=== PATIENT | female | born 1965 | race Caucasian/White ===

== ENCOUNTER 2016-10-01 07:39 | Emergency (ER) | payer BC ==
[~2016-10-01] VITALS: Ht 162.6 cm; Wt 73.5 kg
[2016-10-01 07:42] VITALS: Ht 162.6 cm; Wt 73.5 kg
--- NOTE | 2016-10-01 08:34 | ERD ---
ER Documentation Chief Complaint Date/Time DATE: 10/01/16 TIME: 08:32 Chief Complaint mechanical fall injured r foot HPI This is a 50-year-old female who presents to the emergency department today complaining of right foot and ankle pain after a fall last night. Patient states this happened approximately 10 PM and she put ice on her foot and she thought it would feel better but it woke her up in pain this morning. States she also fell in her left knee and has also put ice on that. Denies any previous trauma. States she is able to walk however she has pain with ambulation. Denies any fevers or chills ROS All systems reviewed and are negative except as per history of present illness. Medications Home Meds Active Scripts Neomycin Moran/Bacitrac Zn/Poly (Triple Antibiotic Ointment) 1 Each Oint.pack, 1 EACH TP BID for 7 Days Prov:RENA BULL PA-C 10/01/16 Allergies Allergies: Coded Allergies: No Known Allergy (Unverified , 10/01/16) PMhx/Soc History of Surgery: No Anesthesia Reaction: No Hx Neurological Disorder: No Hx Respiratory Disorders: No Hx Cardiac Disorders: No Hx Psychiatric Problems: No Hx Miscellaneous Medical Probl: No Hx Alcohol Use: No Hx Substance Use: No Hx Tobacco Use: No Smoking Status: Never smoker Physical Exam Vitals Vital Signs Date Time Temp Pulse Resp B/P Pulse Ox O2 Delivery O2 Flow Rate FiO2 10/01/16 07:42 98.0 69 18 156/85 99 Physical Exam Const: Talkative, no acute distress Head: Atraumatic Eyes: Normal Conjunctiva ENT: Normal External Ears, Nose and Mouth. Neck: Full range of motion..~ No meningismus. Resp: Clear to auscultation bilaterally Cardio: Regular rate and rhythm, no murmurs Abd: Soft, non tender, non distended. Normal bowel sounds Skin: Abrasion left knee MSK: Right foot and ankle with no obvious deformity. Mild effusion over lateral aspect of ankle. Diffusely tender to palpation foot. Full active range of motion ankle. Nontender proximal fibula. Pulses 2+. Distal neurovascularly intact. Left knee with active range of motion. Evidence of abrasion and tenderness palpation over tibial tubercle. Neur: Awake and alert Psych: Normal Mood and Affect Results 24 hrs DIAGNOSTIC IMAGING REPORT Patient: CALLIESARAHLALA : 1965 Age: 50 Sex: F MR #: [id number] DOS: 10/01/16 0000 Ordering MD: RENA BULL PA-C Location: [facility] Room/Bed: PROCEDURE: XR right ankle. CLINICAL INDICATION: Injury TECHNIQUE: Three views are available for review. COMPARISON: None available FINDINGS: The osseous structures are normal in mineralization, architecture and alignment. No fracture or osseous lesion is identified. The joints are unremarkable. The soft tissues are unremarkable. IMPRESSION: Unremarkable examination. RPTAT: HGDB .Nick Phipps MD, Date Time Electronically viewed and signed by .Nick Phipps MD, MD on 10/01/2016 09:02 .B/ CC: RENA BULL PA-C OSTIC IMAGING REPORT Patient: LALA ARENAS : 1965 Age: 50 Sex: F MR #: [id number] DOS: 10/01/16 0000 Ordering MD: RENA BULL PA-C Location: [facility] Room/Bed: PROCEDURE: XR right foot. CLINICAL INDICATION: Injury TECHNIQUE: Three views are available for review. COMPARISON: None available FINDINGS: The osseous structures are normal in mineralization, architecture and alignment. No fracture or osseous lesion is identified. The joints are unremarkable. The soft tissues are unremarkable. IMPRESSION: Unremarkable examination. RPTAT: HGDB .Nick Phipps MD, Date Time Electronically viewed and signed by .Nick Phipps MD, MD on 10/01/2016 09:02 .B/ CC: RENA BULL PA-C DIAGNOSTIC IMAGING REPORT Patient: LALA ARENAS : 1965 Age: 50 Sex: F MR #: [id number] DOS: 10/01/16 0000 Ordering MD: RENA BULL PA-C Location: [facility] Room/Bed: PROCEDURE: XR left knee. CLINICAL INDICATION: Knee pain TECHNIQUE: 3 views are available for review. COMPARISON: None available FINDINGS: The osseous structures are normal in mineralization, architecture and alignment. No fractures are identified. No osseous lesions are identified. The joints are unremarkable. The soft tissues are unremarkable. IMPRESSION: Unremarkable examination RPTAT: HGDB .Nick Phipps MD, Date Time Electronically viewed and signed by .Nick Phipps MD, MD on 10/01/2016 09:03 .B/ CC: RENA BULL PA-C Procedures/MDM This 50-year-old female who presents to the emergency department today for right foot and ankle pain after a mechanical fall last night in which patient was walking when she twisted her ankle and it was dark out. Given patient's age and complaints of pain I did obtain images per Per the radiology report images of the right foot and ankle and left knee are unremarkable. Soft tissues are unremarkable. There is no acute fracture dislocation. Patient symptoms at this time is consistent with sprain versus strain versus contusion. Low suspicion for septic joint or gout. Patient is afebrile and otherwise well-appearing. Patient's left knee wound was dressed here in the emergency department. I will give her prescription for triple antibiotic ointment. She declined any pain medication here in the emergency department stating that she had Tylenol and Motrin at home. Patient was given an Aircast for comfort. At this time the patient is stable for discharge and outpatient management. Patient should follow up with their PCP in the next 1-2 days. They may return to the emergency department sooner for any persistent or worsening of symptoms. Patient understood and agreed with the plan. Departure Diagnosis: Primary Impression: Injury of foot Encounter type: initial encounter Laterality: right Qualified Code: S99.921A - Injury of foot, right, initial encounter Additional Impression: Abrasion Condition: RENA Lemos PA-C Oct 01, 2016 08:34
--- NOTE | 2016-10-01 09:02 | RADRPT ---
PROCEDURE: XR right ankle. CLINICAL INDICATION: Injury TECHNIQUE: Three views are available for review. COMPARISON: None available FINDINGS: The osseous structures are normal in mineralization, architecture and alignment. No fracture or osse ous lesion is identified. The joints are unremarkable. The soft tissues are unremarkable. IMPRESSION: Unremarkable examination. RPTAT: HGDB .Nick Phipps MD, MD Date Time Electronically viewed and signed by .Nick Phipps MD, MD on 10/01/2016 09:02 .B/
--- NOTE | 2016-10-01 09:02 | RADRPT ---
PROCEDURE: XR right foot. CLINICAL INDICATION: Injury TECHNIQUE: Three views are available for review. COMPARISON: None available FINDINGS: The osseous structures are normal in mineralization, architecture and alignment. No fracture or osse ous lesion is identified. The joints are unremarkable. The soft tissues are unremarkable. IMPRESSION: Unremarkable examination. RPTAT: HGDB .Nick Phipps MD, MD Date Time Electronically viewed and signed by .Nick Phipps MD, MD on 10/01/2016 09:02 .B/
--- NOTE | 2016-10-01 09:03 | RADRPT ---
PROCEDURE: XR left knee. CLINICAL INDICATION: Knee pain TECHNIQUE: 3 views are available for review. COMPARISON: None available FINDINGS: The osseous structures are normal in mineralization, architecture and alignment. No fractures are i dentified. No osseous lesions are identified. The joints are unremarkable. The soft tissues are u nremarkable. IMPRESSION: Unremarkable examination RPTAT: HGDB .Nick Phipps MD, MD Date Time Electronically viewed and signed by .Nick Phipps MD, on 10/01/2016 09:03 .B/
[2016-10-01] MEDS ORDERED: NEOM1PAC TP (09:17)
== END 2016-10-01 09:23 | disposition home or self-care (01) ==
LOC: FTE 07:39
DX: S99.921A Unspecified injury of right foot, initial encounter (principal); S90.512A Abrasion, left ankle, initial encounter; W18.39XA Other fall on same level, initial encounter; Y92.9 Unspecified place or not applicable
CPT/HCPCS: 73562; 73630

== ENCOUNTER 2018-01-11 13:25 | Emergency (ER) | END 2018-01-11 15:57 | disposition home or self-care (01) ==

== ENCOUNTER 2018-12-23 22:10 | Emergency (ER) | payer BC ==
[~2018-12-23] VITALS: Ht 160 cm; Wt 66.2 kg
[~2018-12-23 22:10] MED LIST: ACET500C5 PO; CEPH-443 PO; IBUP-1542 PO; NAPR-985 PO; NEOM1PAC TP; OMEP40CA6 PO
[2018-12-23 22:19] VITALS: Ht 160 cm; Wt 66.2 kg
[2018-12-23] MEDS ORDERED: PHENAZOPYRIDINE 100 MG TAB PO ONE (23:30)
[2018-12-24] MEDS ORDERED: CEFTRIAXONE 250 MG INJ IM ONE (01:00)
[2018-12-24] MEDS ORDERED: AZITHROMYCIN 500 MG TAB PO ONE (01:00)
[2018-12-24 01:15] VITALS: BP 126/70; PULSE 75; RESP 19
== END 2018-12-24 01:15 | disposition home or self-care (01) ==
LOC: FTE 22:10
DX: N39.0 Urinary tract infection, site not specified (principal); I10 Essential (primary) hypertension
CPT/HCPCS: 81001; 81003; 84703; 87086; 87591; J0696; Z7610; 96372